=== PATIENT | female | born 1950 ===

== ENCOUNTER → 2016-04-19 | Outpatient (REF) | payer BC | LOC: M LAB REF 14:11 | PROVIDERS: ATTEND Physician Assistant | DX: N39.0 Urinary tract infection, site not specified (principal) ==

== ENCOUNTER → 2018-05-13 | Outpatient (CLI) | payer MEDICARE, OTHER ==
[2018-05-13 12:28] LABS: ALBUMIN 3.8 GM/DL (3.2-5.2); ALT/SGPT 55 U/L (12-78); BILIRUBIN,TOTAL 0.6 MG/DL (0.2-1.0); BLOOD UREA NITROGEN 17 MG/DL (7-18); CALCIUM LEVEL 9.1 MG/DL (8.8-10.2); CARBON DIOXIDE LEVEL 27 MEQ/L (21-32); CHLORIDE LEVEL 109 MEQ/L (98-107); CREATININE FOR GFR 0.81 MG/DL (0.55-1.30); FERRITIN 42 NG/ML (8-252); FREE T3 2.5 PG/ML (2.2-4.0); FREE T4 0.84 NG/DL (0.76-1.46); GLOMERULAR FILTRATION RATE > 60.0 (>45); GLUCOSE, FASTING 102 MG/DL (70-100); POTASSIUM SERUM 3.9 MEQ/L (3.5-5.1); SODIUM LEVEL 142 MEQ/L (136-145); THYROID STIMULATING HORMONE 0.466 uIU/ML (0.358-3.740); TOTAL PROTEIN 7.4 GM/DL (6.4-8.2)
[2018-05-13 15:25] LABS: HEMOGLOBIN A1c 5.5 %
[2018-05-14 10:45] LABS: TOTAL 25(OH) VITAMIN D 31.6 NG/ML (30.0-100.0)
[2018-05-14 12:19] LABS: FOLATE 11.5 NG/ML
[2018-05-18 14:12] LABS: INSULIN LEVEL 13.8 uIU/mL (2.6-24.9)
[2018-05-19 00:08] LABS: COPPER PLASMA 97 ug/dL (72-166); SELENIUM LEVEL BLOOD 244 ug/L (100-340); ZINC PLASMA 94 ug/dL (56-134)
[2018-06-04 08:04] LABS: HDL-C 49 mg/dL (>39); HDL-P (TOTAL) 32.5 umol/L (>=30.5); HOMOCYST(E)INE SERUM 8.8 umol/L (0.0-15.0); LDL-C 111 mg/dL (0-99); LDL-P 1408 nmol/L (<1000); LP-IR SCORE 51 (<=45); MAGNESIUM RBC LEVEL 6.5 mg/dL (4.2-6.8); SMALL LDL-P 532 nmol/L (<=527); T3 REVERSE 20.6 ng/dL (9.2-24.1); TRIGLYCERIDES 102 mg/dL (0-149)
[2018-06-04 08:27] LABS: CHOLESTEROL,TOTAL 180
== END ==
LOC: M WUC 08:22
PROVIDERS: ATTEND Nurse Practitioner Primary Care
DX: R63.5 Abnormal weight gain (principal); F41.9 Anxiety disorder, unspecified; K90.9 Intestinal malabsorption, unspecified; R73.9 Hyperglycemia, unspecified; E78.5 Hyperlipidemia, unspecified